=== PATIENT | female | born 1935 | race Two or more races ===

== ENCOUNTER 2020-12-09 19:10 | Inpatient (IN) | payer MEDICAID ==
[~2020-12-09] VITALS: Ht 157.5 cm; Wt 80.7 kg
[2020-12-09] MEDS ORDERED: HYDROCODONE/ACETAMINOPHEN 5/325MG TABLET PO ONE (20:00)
[2020-12-09] MEDS ORDERED: BACITRACIN ZINC OINT UDPKT TOP ONE (20:00)
[2020-12-09] MEDS ORDERED: TETANUS, DIPHTHERIA, PERTUSSIS VAC/PF 0.5ML (>7YR OLD) IM ONE (20:00)
[2020-12-10] MEDS ORDERED: IBUPROFEN 600MG TABLET PO ONE (00:30)
[2020-12-10] MEDS ORDERED: HYDROCODONE/ACETAMINOPHEN 5/325MG TABLET PO ONE (00:30)
[2020-12-10 00:44] LABS: BASOPHILS % 0.3 % (0.0-2.0); EOSINOPHILS % 0.8 % (0.0-5.0); HEMATOCRIT. 40.9 % (36.0-48.0); HEMOGLOBIN. 13.4 g/dL (12.0-16.0); LYMPHOCYTES % 23.2 % (20.0-50.0); MEAN CORPUSCULAR VOLUME 88.6 fL (81.0-99.0); MEAN PLATELET VOLUME 9.6 fl (7.4-10.4); MONOCYTES % 7.8 % (2.0-8.0); NEUTROPHILS % 67.9 % (40.0-76.0); PLATELET 107 x1000/uL (130-400); RED BLOOD CELL COUNT 4.61 mill/uL (4.2-5.4); RED CELL DISTRIBUTION WIDTH 13.7 % (11.6-14.6)
[2020-12-10 00:56] LABS: CHLORIDE 106 mEq/L (98-107)
[2020-12-10] MEDS ORDERED: POTASSIUM CHLORIDE 20MEQ TABLET SR PO NR (01:45)
[2020-12-10] MEDS ORDERED: MORPHINE SULFATE 4 MG/ML CPJ (NOT FOR IM USE) IV ONE (02:00)
[2020-12-10 09:10] VITALS: BP 146/91
[2020-12-10 09:20] VITALS: BP 146/91
[2020-12-10] MEDS ORDERED: APIX5TAB4 PO (09:35)
[2020-12-10] MEDS: MORPHINE SULFATE 2 MG/ML CPJ (NOT FOR IM USE) IV PRN ×2 (10:58→20:19)
[2020-12-10] MEDS ORDERED: OMEP10CA5 MT (11:33)
[2020-12-10 12:00] VITALS: BP 141/67
[2020-12-10] MEDS ORDERED: HYDROCODONE/ACETAMINOPHEN 5/325MG TABLET PO PRN (13:00)
[2020-12-10] MEDS ORDERED: ONDANSETRON HCL 4MG/2ML INJ IV PRN (13:00)
[2020-12-10] MEDS ORDERED: ACETAMINOPHEN 325MG TABLET PO PRN (13:00)
[2020-12-10 16:00] VITALS: BP 127/66
[2020-12-10 20:46] VITALS: BP 123/70
[2020-12-11 00:06] LABS: CLARITY URINE CLEAR (CLEAR); COLOR URINE YELLOW (YELLOW); KETONES URINE 3+ (NEGATIVE); LEUKOCYTE ESTERASE URINE NEGATIVE (NEGATIVE); NITRITE URINE NEGATIVE (NEGATIVE); OCCULT BLOOD URINE 1+ (NEGATIVE); PROTEIN URINE TRACE (NEGATIVE); SPECIFIC GRAVITY URINE 1.022 (1.005-1.030)
[2020-12-11 00:10] VITALS: BP 112/65
[2020-12-11] MEDS: MORPHINE SULFATE 2 MG/ML CPJ (NOT FOR IM USE) IV PRN ×2 (00:34→09:28)
[2020-12-11 05:15] VITALS: BP 118/62
[2020-12-11 06:48] LABS: CHLORIDE 104 mEq/L (98-107)
[2020-12-11 07:00] LABS: BASOPHILS % 0.3 % (0.0-2.0); EOSINOPHILS % 1.3 % (0.0-5.0); HEMATOCRIT. 38.1 % (36.0-48.0); HEMOGLOBIN. 12.6 g/dL (12.0-16.0); LYMPHOCYTES % 14.5 % (20.0-50.0); MEAN CORPUSCULAR HEMOGLOBIN 29.2 pg (28.0-32.0); MEAN CORPUSCULAR VOLUME 88.1 fL (81.0-99.0); MEAN PLATELET VOLUME 10.2 fl (7.4-10.4); MONOCYTES % 4.6 % (2.0-8.0); NEUTROPHILS % 79.3 % (40.0-76.0); PLATELET 99 x1000/uL (130-400); RED BLOOD CELL COUNT 4.33 mill/uL (4.2-5.4); RED CELL DISTRIBUTION WIDTH 13.8 % (11.6-14.6)
[2020-12-11 08:00] VITALS: BP 140/84
[2020-12-11] MEDS ORDERED: POTASSIUM CHLORIDE 20MEQ TABLET SR PO NR (09:00)
[2020-12-11] MEDS: ASPIRIN 81MG TABLET PO SCH (09:12)
[2020-12-11 12:00] VITALS: BP 108/62
[2020-12-11] MEDS: HYDROCODONE/ACETAMINOPHEN 10/325MG TABLET PO PRN ×2 (13:09→19:54)
[2020-12-11 16:00] VITALS: BP 106/63
[2020-12-11 20:00] VITALS: BP 116/65
[2020-12-12] VITALS: BP 116/46
[2020-12-12 04:00] VITALS: BP 109/62
[2020-12-12] MEDS ORDERED: LEVOTHYROXINE SODIUM 50MCG TABLET PO SCH (07:20)
[2020-12-12 08:00] VITALS: BP 122/84
[2020-12-12] MEDS: ASPIRIN 81MG TABLET PO SCH (09:06)
[2020-12-12 12:18] VITALS: BP 116/64
[2020-12-12] MEDS ORDERED: HYDR-4009 PO (13:01)
[2020-12-12] MEDS ORDERED: LEVO50TA8 PO (13:01)
[2020-12-12] MEDS ORDERED: LIP40 MT (13:02)
[2020-12-12 16:00] VITALS: BP 103/58
[2020-12-12 19:40] VITALS: BP 103/58
[2020-12-12] MEDS ORDERED: ENOXAPARIN 80MG/0.8ML SYR SUBCUT SCH (20:00)
== END 2020-12-12 20:10 | disposition home health service (06) | DRG 48 ==
LOC: ER 19:10 → 6EST 12-10 01:59 → ENRESERV 12-10 07:50
PROVIDERS: ADMIT Internal Medicine; ATTEND Internal Medicine
DX: G90.8 Other disorders of autonomic nervous system (principal); S22.20XA Unspecified fracture of sternum, initial encounter for closed fracture; E87.6 Hypokalemia; I16.0 Hypertensive urgency; E66.9 Obesity, unspecified; W01.0XXA Fall on same level from slipping, tripping and stumbling without subsequent striking against object, initial encounter; M19.90 Unspecified osteoarthritis, unspecified site; I10 Essential (primary) hypertension; E03.9 Hypothyroidism, unspecified; I48.91 Unspecified atrial fibrillation; Y93.01 Activity, walking, marching and hiking; Y92.89 Other specified places as the place of occurrence of the external cause; Z68.32 Body mass index [BMI] 32.0-32.9, adult; Z86.73 Personal history of transient ischemic attack (TIA), and cerebral infarction without residual deficits; Y99.8 Other external cause status
CPT/HCPCS: 36415; 71045; 71250; 72170; 80048; 80053; 80061; 81003; 84443; 84484; 85025; 90715; 93005; 97116; 97162; 97166; 97535; 99285; J2270

== ENCOUNTER 2022-07-06 18:04 | Emergency (ER) | payer MEDICAID ==
[~2022-07-06] VITALS: Ht 152.4 cm; Wt 72.0 kg
[~2022-07-06 18:04] MED LIST: APIX5TAB4 PO; HYDR-4009 PO; LEVO50TA8 PO; LIP40 MT; OMEP10CA5 MT
[2022-07-06 18:15] VITALS: BP 152/71
[2022-07-06 23:42] LABS: BASOPHILS % 0.6 % (0.0-2.0); EOSINOPHILS % 4.1 % (0.0-5.0); HEMATOCRIT. 42.6 % (36.0-48.0); HEMOGLOBIN. 13.9 g/dL (12.0-16.0); LYMPHOCYTES % 35.2 % (20.0-50.0); MEAN CORPUSCULAR HEMOGLOBIN 29.3 pg (28.0-32.0); MEAN PLATELET VOLUME 9.4 fl (7.4-10.4); MONOCYTES % 9.5 % (2.0-8.0); NEUTROPHILS % 50.6 % (40.0-76.0); PLATELET 136 x1000/uL (130-400); RED BLOOD CELL COUNT 4.73 mill/uL (4.2-5.4); RED CELL DISTRIBUTION WIDTH 14.1 % (11.6-14.6)
[2022-07-06 23:50] LABS: CHLORIDE 103 mEq/L (98-107)
== END 2022-07-07 01:13 | disposition home or self-care (01) ==
LOC: ER 18:04
DX: R07.89 Other chest pain (principal); I48.91 Unspecified atrial fibrillation; I10 Essential (primary) hypertension
CPT/HCPCS: 36415; 71045; 80053; 84484; 85025; 93005; 99285